=== PATIENT | female | born 1965 | race Two or more races ===

== ENCOUNTER 2024-02-18 14:52 | Outpatient (CLI) | payer MEDICAID | END 2024-02-18 23:59 | disposition home or self-care (01) | LOC: MRI 14:52 | PROVIDERS: ATTEND Specialist | DX: S43.491A Other sprain of right shoulder joint, initial encounter (principal); M75.121 Complete rotator cuff tear or rupture of right shoulder, not specified as traumatic; M89.311 Hypertrophy of bone, right shoulder; M77.8 Other enthesopathies, not elsewhere classified; M25.511 Pain in right shoulder; M75.41 Impingement syndrome of right shoulder; R60.9 Edema, unspecified; X58.XXXA Exposure to other specified factors, initial encounter; Y93.89 Activity, other specified; Y92.89 Other specified places as the place of occurrence of the external cause; Y99.8 Other external cause status | CPT/HCPCS: 73221 ==